=== PATIENT | male | born 1990 | race Caucasian/White ===

== ENCOUNTER 2020-01-19 15:08 | Outpatient (CLI) | payer BC ==
--- NOTE | 2020-01-19 16:03 | RAD ---
Left knee 4 views: 01/19/2020 COMPARISON: None HISTORY: Left knee pain, prior knee surgeries FINDINGS: Medial screw and plate fixation of the proximal left tibia noted. No knee joint effusion, d isplaced fracture, or evidence of dislocation. Question a history of prior proximal left tibial osteotomy medially. IMPRESSION: Postoperative changes. No acute osseous abnormality.
== END 2020-01-19 15:09 | disposition home or self-care (01) ==
LOC: BICRAD 15:08
DX: M21.062 Valgus deformity, not elsewhere classified, left knee (principal); M25.562 Pain in left knee; Z98.890 Other specified postprocedural states